=== PATIENT | male | born 1970 | race Caucasian/White ===

== ENCOUNTER 2016-11-08 12:35 | Emergency (ER) | payer OTHER ==
[~2016-11-08] VITALS: Ht 175.3 cm; Wt 68.2 kg
[2016-11-08 12:38] VITALS: BP 112/68; PULSE 76; RESP 16; O2SAT 100
--- NOTE | 2016-11-08 13:06 | ED.REPORT ---
HPI- Male Date of Service Nov 08, 2016 ED Provider: Jennifer Muniz History of Present Illness: has divertolitis has been rectal bleeding for a week. Has been dealing with this for a long time. feeling dizzy and weak a few days ago. Dr. Pemberton on [place]. Abd pain varies from 0 to 8, usually around 4 to 6 Nursing Notes Stated Complaint: BLOOD LOSS Chief Complaint: General Complaint Nursing Notes Reviewed: Yes Allergies: Coded Allergies: No Known Allergies (Unverified , 11/08/16) General Time Seen by MD: 13:03 Chief Complaint Abdominal pain... 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, recently fired 11/08/2016 Ambulatory Status Independent Review of Systems Basic Review of Systems Eyes: Vision NL, No discharge Respiratory: No shortness of breath, No cough, No wheeze Allergy / Immune: No allergy Physical Exam Initial Vital Signs Vital Signs (First) Date Time Temp Pulse Resp B/P Pulse Ox O2 Delivery O2 Flow Rate FiO2 11/08/16 12:38 36.9 76 16 112/68 100 Room Air Initial VS: Reviewed, Vital signs normal General/Constitutional: Well-developed, Well-nourished Head / Eyes: Atraumatic, Normocephalic, PERRL ENT: Mucous membranes moist, Conjunctiva normal, No scleral icterus Neck: Supple, Non-tender, Full range of motion Respiratory: Breath sounds normal, Clear to auscultation, No respiratory distress Cardiovascular: Regular rate & rhythm, Heart sounds normal, Intact distal pulses Abdomen / GI: Soft, Non-tender, No guarding, No rebound, No distention Back: No CVA tenderness Lymphatic: No lymphadenopathy Extremities: Vascular intact, Neuro intact, No swelling, No tenderness Skin: Warm, Dry, No cyanosis Neurologic: Alert, Oriented, Nonfocal Psychiatric: Mood/affect normal, Behavior normal, Normal thought content General/Constitutional: Awake, Alert, No acute distress, Well appearing, Well developed, Well hydrated tenderness to left mid to upper abd Head / Eyes: Atraumatic, Normocephalic, PERRL ENT: Atraumatic, Airway patent, Mucous membranes moist Respiratory / Chest: Atraumatic, Breath sounds NL, Breath sounds = bilat Cardiovascular: Heart rate NL, Regular rhythm, Heart sounds NL Rectum / Perineum: Atraumatic, No hemorrhoids, No mass Rectal for Blood: Positive: Blood, grossly present Interpretation & Diagnostics Lab Results Interpretation Result Diagram: 11/08/16 1300 11/08/16 1300 Test 11/08/16 13:00 11/08/16 13:40 White Blood Count 8.2th/mm3 (3.8-10.1) Red Blood Count 2.96mil/mm3 (4.40-5.80) Hemoglobin 9.5g/dL (13.8-17.2) Hematocrit 26.5% (41.0-50.0) Mean Corpuscular Volume 89.5fL (81-100) Mean Corpuscular Hemoglobin 32.1pg (27.0-35.0) Mean Corpuscular Hemoglobin Concent 35.8% (32.0-37.0) Red Cell Distribution Width 12.1% (12.3-15.4) Platelet Count 239bil/L (150-400) Neutrophils (%) (Auto) 66.6% (40-74) Lymphocytes (%) (Auto) 26.5% (14-46) Monocytes (%) (Auto) 5.7% (4-12) Eosinophils (%) (Auto) 0.7% (0-5) Basophils (%) (Auto) 0.4% (0-3) Prothrombin Time 10.5sec (8.1-12.5) Prothromb Time International Ratio 0.98ratio Sodium Level 135mEq/L (134-144) Potassium Level 3.8mEq/L (3.5-5.2) Chloride Level 98mEq/L (97-108) Carbon Dioxide Level 24mmol/L (18-29) Blood Urea Nitrogen 13mg/dL (6-24) Creatinine 1.05mg/dL (0.76-1.27) Estimat Glomerular Filtration Rate 81mL/min (>59) Glucose Level 140mg/dL (60-99) Calcium Level 8.8mg/dL (8.5-10.1) Magnesium Level 1.8mg/dL (1.6-2.6) Iron Level 28ug/dL (35-150) Total Iron Binding Capacity 268ug/dL (250-450) Percent Iron Saturation 10%sat (15-50) Unsaturated Iron Binding 239.8ug/dL Total Bilirubin 0.2mg/dL (0.0-1.2) Aspartate Amino Transf (AST/SGOT) 20U/L (0-50) Alanine Aminotransferase (ALT/SGPT) 24U/L (0-44) Alkaline Phosphatase 47U/L (25-150) Total Protein 5.9g/dL (6.4-8.4) Albumin 3.7g/dL (3.4-5.0) Lipase 342U/L (13-60) Lactic Acid Level 1.1mmol/L (0.4-2.0) Re-Eval/Medical Decision Med Decision/Clinical Course 45 year old male presents with bright red rectal bleeding of several days duration. He believes the bleeding is caused by divertilutitis. He usually treats it with fiber and the bleeding resolves. REporting intermintt abd pain with the bleeding. He noticed he was dizzy and weak [address] is unremarkable. Rectal exam is grossly positive without hemmorrhoids. H and H is at 9.5 and 26.5. As no beds are available at [facility], he is transferred to [facility] in [place] in stable condition. No sign of abscess or UC Discharge & Departure Impression: Primary Impression: Bright red rectal bleeding Disposition: Transfer, Acute Care Facility EDSupervising Provider for APC: Good Townsend MD copies to: Josue Walter MD, Sue ARNP Nov 08, 2016 13:06
[2016-11-08 13:15] LABS: BASOPHILS % (AUTO) 0.4 % (0-3); EOSINOPHILS % (AUTO) 0.7 % (0-5); MONOCYTES % (AUTO) 5.7 % (4-12); Mean Corpuscular Hemoglobin 32.1 pg (27.0-35.0); Mean Corpuscular Volume 89.5 fL (81-100); NEUTROPHILS % (AUTO) 66.6 % (40-74); Platelet Count 239 bil/L (150-400)
[2016-11-08] MEDS ORDERED: 0.9% Sodium Chloride 1,000 ML IV ONE ×2 (13:15→17:20)
[2016-11-08] MEDS ORDERED: HYDROmorphone 0.5 mg/0.5 mL iSecure Syringe IVPUSH ONE ×2 (13:15→17:40)
[2016-11-08 13:31] LABS: INR 0.98 ratio
[2016-11-08 13:42] LABS: Magnesium 1.8 mg/dL (1.6-2.6)
[2016-11-08] MEDS ORDERED: Iohexol 300 mg/mL 30 mL Inj PO ONE (15:45)
[2016-11-08 16:58] LABS: Unsaturated Iron Binding 239.8 ug/dL
[2016-11-08 17:49] VITALS: BP 115/62; PULSE 68; O2SAT 99
[2016-11-08 17:50] VITALS: BP 129/77; PULSE 86; O2SAT 98
[2016-11-08 18:43] VITALS: BP 123/66; PULSE 71; RESP 18; O2SAT 99
--- NOTE | 2016-11-08 19:19 | DRSVH ---
PROCEDURE: CT ABDOMEN AND PELVIS WITH CONTRAST ([id number]) INDICATIONS: abd pain TECHNIQUE: After the administration of intravenous contrast, 5 mm thick sections acquired from the diaphragm to the symphysis. 5 mm coronal and sagittal reformats were acquired. For radiation dose reduction, the following was used: automated exposure control, adjustment of mA and/or kV according to patient siz e. The patient then was rescanned after 2 additional hours of oral contrast ingestion to assist in v isualization of the distal small bowel and colon. COMPARISON: None. FINDINGS: Image quality: Excellent. ABDOMEN: Lung bases: Lung bases are clear. Heart size is normal. Solid organs: Liver and spleen are normal in size and enhancement. Gallbladder appears normal. Nate iary system is non dilated. Pancreas enhances normally. No adrenal nodules. Kidneys demonstrate no rmal size and enhancement, without hydronephrosis. Peritoneum and bowel: Bowel loops demonstrate normal wall thickness and caliber. No free fluid or a ir. Nodes and vessels: No retroperitoneal or mesenteric adenopathy by size criteria. Aorta and inferior vena cava are normal in size. Miscellaneous: No ventral hernias. PELVIS: Genitourinary: Bladder wall thickness is normal. Miscellaneous: No inguinal hernias or adenopathy. Bones: No suspicious bony lesions. No vertebral body compression fractures. IMPRESSION: Source of rectal bleeding is not found. No abscess is suspected are identified, no free air identified throughout the peritoneal space. Oral contrast did transit through the small bowel i nto the colon. A bowel perforation is not identified. A bowel obstruction is not found. Dictated by: Eric Savage M.D. on 11/08/2016 at 19:14 Approved by: Eric Savage M.D. on 11/08/2016 at 19:17
[2016-11-08 19:50] VITALS: BP 128/71; PULSE 76; RESP 18; O2SAT 99
== END 2016-11-08 19:51 | disposition other institution (70) ==
LOC: SED 12:35
DX: K62.5 Hemorrhage of anus and rectum (principal); F17.200 Nicotine dependence, unspecified, uncomplicated
CPT/HCPCS: 36415; 74177; 80053; 83540; 83550; 83605; 83690; 83735; 85025; 85610; 86850; 96374; 99285; J1170; J7030; Q9967